=== PATIENT | female | born 1990 | race Caucasian/White ===

== ENCOUNTER 2017-06-01 17:48 | Emergency (ER) | payer OTHER ==
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
[2017-06-01 18:00] VITALS: BP 137/89; PULSE 105; RESP 18; TEMP 98.8; O2SAT 100
[2017-06-01] MEDS ORDERED: IBUPROFEN 600 MG TAB PO ONE (18:18)
== END 2017-06-01 18:48 | disposition home or self-care (01) ==
LOC: EDUNIT#
DX: S90.01XA Contusion of right ankle, initial encounter (principal); S79.911A Unspecified injury of right hip, initial encounter; V13.9XXA Unspecified pedal cyclist injured in collision with car, pick-up truck or van in traffic accident, initial encounter; Y92.410 Unspecified street and highway as the place of occurrence of the external cause; Y99.8 Other external cause status; Y93.55 Activity, bike riding
CPT/HCPCS: L4350